=== PATIENT | female | born 1980 | race Caucasian/White ===

== ENCOUNTER → 2021-02-14 10:30 | Outpatient (CLI) | payer OTHER, SELFPAY ==
[2021-02-15 20:26] LABS: SARS-CoV-2 RNA PCR Negative
== END ==
PROVIDERS: PCP Internal Medicine; Visit Provider Nurse Practitioner
DX: R68.89 Other general symptoms and signs (principal); Z20.822 Contact with and (suspected) exposure to COVID-19
CPT/HCPCS: C9803; U0003; U0005

== ENCOUNTER → 2021-03-30 08:56 | Outpatient (CLI) | payer OTHER, SELFPAY ==
[2021-03-30 21:12] LABS: SARS-CoV-2 RNA PCR Positive
== END ==
PROVIDERS: PCP Internal Medicine; Visit Provider Nurse Practitioner
DX: U07.1 COVID-19 (principal)
CPT/HCPCS: C9803; U0003; U0005

== ENCOUNTER 2022-01-22 11:07 | Outpatient (CLI) | payer OTHER, SELFPAY ==
--- NOTE | 2022-01-22 11:16 | ECG_ITS ---
Measurements Intervals [place] Rate: 73 P: 63 MS: 152 QRS: 68 QRSD: 69 T: 47 QT: 343 QTc: 379 Interpretive Statements SINUS RHYTHM BORDERLINE ST ABNORMALITY- ANTERIOR LEADS BASELINE WANDER- I, II BORDERLINE ECG NO PREVIOUS ECG AVAILABLE FOR COMPARISON Electronically Signed On 01-22-2022 11:43:56 HOTEL SECURITY OFFICER by Lenin Mayen D.O.
== END 2022-01-22 11:08 | disposition home or self-care (01) ==
LOC: ANHCARD 11:09
PROVIDERS: PCP Internal Medicine; Visit Provider Obstetrics & Gynecology
DX: Z87.59 Personal history of other complications of pregnancy, childbirth and the puerperium (principal); R94.31 Abnormal electrocardiogram [ECG] [EKG]
CPT/HCPCS: 93005

== ENCOUNTER 2022-03-05 17:00 | Emergency (ER) | payer OTHER, SELFPAY ==
[2022-03-05 17:09] VITALS: BP 135/92; PULSE 103; RESP 16; TEMP 37.2; O2SAT 100
--- NOTE | 2022-03-05 17:16 | ED.FEMALEGU ---
HPI - Female Genitourinary General Chief complaint: Urogenital-Female Stated complaint: uti Time Seen by Provider: 03/05/22 17:33 Source: patient and RN notes reviewed Mode of arrival: ambulatory Limitations: no limitations History of Present Illness HPI Narrative: 51-year-old female in the 2nd trimester of presents with concern for urinary tract infection. Reports urine frequency, urgency, decreased urine amount. She denies fever, aches, chills, sweats, back pain, abdominal pain or cramping. MD elicited complaint: UTI Related Data Allergies Allergy/AdvReac Type Severity Reaction Status Date / Time cefaclor Allergy Unknown Hives Verified 03/05/22 17:25 Review of Systems Review of Systems: CONSTITUTIONAL: Denies malaise, chills, sweats, or fever. CARDIOVASCULAR: Denies chest pain, palpitations, or edema. RESPIRATORY: Denies cough or dyspnea. GASTROINTESTINAL: Denies abdominal pain, nausea, vomiting, diarrhea GENITOURINARY: Reports frequency, urgency, decreased urine amount. Denies urgency, suprapubic pressure. Denies flank pain or hematuria. SKIN: Denies rash or itching. MUSCULOSKELETAL: Denies back pain or myalgia. All systems reviewed & are unremarkable except as noted in HPI and below PMFSH Past Medical History Medical History Essential hypertension Generalized headaches Family History Family History Other Depression Heart disease History of cancer Hypertension Social History Social History Smoking status: Never smoker Alcohol intake: current Drinks per week: 3 Alcohol use details: wine Substance use: never Comments At time of signature, agree with nursing past medical, surgical, social and family history. There is no relevant family history pertinent to the presenting complaint Exam Narrative: GENERAL: Well-appearing, well-nourished, and in no acute distress. HEAD: Normocephalic. EYES: PERRLA, conjunctivae clear. NECK: Supple. No lymphadenopathy CHEST: Clear to auscultation. No respiratory distress. HEART: Regular rate and rhythm. ABDOMEN: Soft, nontender upon palpation, nondistended, normal active bowel sounds, no palpable or pulsatile masses, no guarding. No CVA tenderness SKIN: Warm, dry, no rash. NEURO: Alert and oriented x3. PSYCH: Normal mood and affect Course Course Emergency Course: Patient is aware of diagnosis, understands and agrees to treatment plan. Anticipatory guidance given. Patient agrees to follow-up as directed and is aware of reasons to seek care at the emergency department. Portions of this record may have been created with voice recognition software Level of Care: Express Care Visit Vital Signs Vital signs: Vital Signs Temperature 98.9 F 03/05/22 17:09 Pulse Rate 103 H 03/05/22 17:09 Respiratory Rate 16 03/05/22 17:09 Blood Pressure 135/92 H 03/05/22 17:09 Pulse Oximetry 100 03/05/22 17:09 Temperature 98.9 F 03/05/22 17:09 Pulse Rate 103 H 03/05/22 17:09 Respiratory Rate 16 03/05/22 17:09 Blood Pressure 135/92 H 03/05/22 17:09 Pulse Oximetry 100 03/05/22 17:09 Reviewed. MDM - Female Genitourinary MDM Narrative Medical decision making narrative: Exam findings and UA show no acute concerns or changes; patient is non-toxic appearing and is in no distress. Patient is appropriate for outpatient treatment and follow-up. Differential Diagnosis Differential diagnosis: Likely urinary tract infection and cystitis Critical Care Time Critical Care Time Critical Care Time: No Discharge Plan Discharge Clinical Impression: Symptoms of urinary tract infection Patient Disposition: Home, Self-Care Condition: Stable Instructions: Antibiotic Form, Urinary Tract Infection in (ED) Additional Instructions: We will send a urine cu
== END 2022-03-05 17:43 | disposition home or self-care (01) ==
PROVIDERS: Emergency Provider Nurse Practitioner; PCP Internal Medicine
DX: O99.891 Other specified diseases and conditions complicating pregnancy (principal); Z3A.00 Weeks of gestation of pregnancy not specified; R35.0 Frequency of micturition; R39.15 Urgency of urination; O16.2 Unspecified maternal hypertension, second trimester
CPT/HCPCS: 81003; 87086; 99213; G0463

== ENCOUNTER 2022-03-08 13:59 | Emergency (ER) | payer OTHER, SELFPAY ==
[2022-03-08 13:59] VITALS: BP 150/90; PULSE 110; RESP 16; TEMP 36.4; O2SAT 100
--- NOTE | 2022-03-08 16:22 | PC.NURSE ---
Pt attempted to void, unable to pass any urine. Pt had 668mL on Bladder scan., Liz Capellan notified
[2022-03-08 16:42] LABS: Add Urine Microscopic? YES; Appearance Urine Clear (Clear); Bilirubin Urine Negative (Negative); Blood Urine Negative (Negative); Color Urine Yellow (Yellow); Glucose Urine UA Trace mg/dL (Negative); Ketones Urine Trace mg/dL (Negative); Leukocyte Esterase Ur 2+ LEU/UL (Negative); Nitrate Urine Positive (Negative); Protein Urine Trace mg/dL (Negative); pH Urine 5.5 (5.0-9.0)
[2022-03-08 16:57] LABS: Bacteria Urine 4+ /hpf; Mucus Urine Rare /lpf; Squamous Epithelial Cell Urine Many /hpf (Few)
--- NOTE | 2022-03-08 17:33 | ED.FEMALEGU ---
HPI - Female Genitourinary General Chief complaint: Urogenital-Female <NORBERTO Selby Last Filed: 03/08/22 19:40> Stated complaint: urinary frequency <NORBERTO Selby Last Filed: 03/08/22 19:40> Time Seen by Provider: 03/08/22 15:55 <NORBERTO Selby Last Filed: 03/08/22 19:40> Source: patient <NOBRERTO Selby Last Filed: 03/08/22 19:40> Mode of arrival: ambulatory <NORBERTO Selby Last Filed: 03/08/22 19:40> Limitations: no limitations <NORBERTO Selby Last Filed: 03/08/22 19:40> History of Present Illness HPI Narrative: Patient is a 41 y/o female who presents to the ED with c/o urinary retention. Patient reports having issues with urination over the last 3 to 4 days. She reports having urinary frequency and urgency, but being unable to void. She is typically only able to void a small amount and does not feel like she is fully emptying her bladder. She reports some discomfort associated with urination, but denies significant abdominal pain, back pain, hematuria, nausea, vomiting, fevers, vaginal bleeding. Patient is G1, P0 and currently 18 weeks gestation[address] She sees Dr[address] Chavira and was referred here today by the office for further evaluation. Patient was seen in urgent care on Saturday at which point her urinalysis resulted negative and urine culture was also negative. <NORBERTO Selby Last Filed: 03/08/22 19:40> Related Data Allergies/Adverse reactions: Allergies Allergy/AdvReac Type Severity Reaction Status Date / Time cefaclor Allergy Unknown Hives Verified 03/05/22 17:25 <NORBERTO Selby Last Filed: 03/08/22 19:40> Review of Systems Review of Systems: CONSTITUTIONAL: Denies fever, chills, or sweats. EYES: Denies visual changes. ENT: Denies rhinorrhea, congestion, sore throat. CARDIOVASCULAR: Denies chest pain. RESPIRATORY: Denies dyspnea. GASTROINTESTINAL: Denies abdominal pain, nausea, vomiting. GENITOURINARY: Reports urinary frequency, urinary urgency, dysuria, urinary retention. Denies hematuria. SKIN: Denies rash or itching. MUSCULOSKELETAL: Denies back pain, joint pain, or myalgia. NEUROLOGIC: Denies headache, numbness, or weakness. <Janeth Fang PA-C - Last Filed: 03/08/22 19:40> All systems reviewed & are unremarkable except as noted in HPI and below <Janeth Fang PA-C - Last Filed: 03/08/22 19:40> [facility] Past Medical History Medical History: Medical History (Updated 03/09/22 @ 00:00 by Delroy Tenorio) Essential hypertension Generalized headaches <Janeth Fang PA-C - Last Filed: 03/08/22 19:40> Surgical History Surgical History: Surgical History (Updated 03/08/22 @ 17:33 by Janeth Fang PA-C) No pertinent past surgical history <Janeth Fang PA-C - Last Filed: 03/08/22 19:40> Family History Family History: Family History Other Depression Heart disease History of cancer Hypertension <Janeth Fang PA-C - Last Filed: 03/08/22 19:40> Social History Social History: Social History Smoking status: Never smoker Alcohol intake: current Drinks per week: 3 Alcohol use details: wine Substance use: never <Janeth Fang PA-C - Last Filed: 03/08/22 19:40> Exam Narrative: GENERAL: Well appearing, obese, non-toxic, in no acute distress. HEAD: Normocephalic, atraumatic. NECK: Supple. No adenopathy, no masses. RESPIRATORY: Airway patent, respirations nonlabored. Clear to auscultation bilaterally, no rales, rhonchi, wheezing. CARDIOVASCULAR: Borderline tachycardic with regular rhythm without murmurs, rubs, or gallops. Peripheral pulses 2+ and equal bilaterally. ABDOMINAL: Soft, no significant tenderness throughout abdomen, uterus gravid, nondiste
[2022-03-08 17:53] LABS: Basophils Percent Auto 0.4 % (0.2-1.2); Eosinophils Absolute Auto 0.3 K/mm3 (0-0.3); Eosinophils Percent Auto 2.5 % (0-4.4); Hematocrit 35.4 % (37.0-47.0); Hemoglobin 11.9 g/dL (12.0-15.0); Immature Granulocyte Absolute 0.05 K/mm3 (0.00-0.031); Immature Granulocyte Percent A 0.5 % (0-0.5); Lymphocytes Absolute Auto 1.63 K/mm3 (0.9-3.2); Lymphocytes Percent Auto 15.8 % (18.3-44.2); Mean Corpuscular HGB Conc 33.6 g/dl (32-36); Mean Corpuscular Hemoglobin 29.8 pg (26-34); Mean Corpuscular Volume 88.5 fl (80-100); Mean Platelet Volume 9.1 fl (7.4-10.4); Monocytes Absolute Auto 0.5 K/mm3 (0.1-0.6); Monocytes Percent Auto 5.1 % (2.6-8.5); Neutrophils Absolute Auto 7.8 K/mm3 (1.3-6.7); Neutrophils Percent Auto 75.7 % (45.5-73.1); Platelet Count Result 285 k/mm3 (150-375); Red Cell Distribution Width 13.2 % (11.5-14.5); White Blood Count 10.3 K/mm3 (4.5-10.0)
[2022-03-08 18:06] LABS: Alanine Aminotransferase 23 U/L (6-35); Albumin Level 3.9 g/dL (3.5-5.1); Alkaline Phosphatase 81 U/L (38-126); Anion Gap 6 mmol/L (8-16); Aspartate Amino Transferase 23 U/L (14-36); Bilirubin,Total 0.3 mg/dL (0.2-1.3); Blood Urea Nitrogen 10 mg/dL (7-17); Calcium 9.3 mg/dL (8.4-10.2); Carbon Dioxide 24 mmol/L (22-30); Chloride 102 mmol/L (98-107); Estimated CRCL calculation 136 ml/min; Estimated Glomerular Filt Rate > 60; Glucose 89 mg/dL (65-110); Sodium 132 mmol/L (137-145)
[2022-03-08] MEDS: SODIUM CHLORIDE 0.9% IV 1,000 ML 999 ML IV CONT (18:35)
[2022-03-08 19:10] VITALS: BP 137/78; PULSE 102; RESP 18; O2SAT 98
[2022-03-08] MEDS: FLUCONAZOLE 150 MG TABLET PO (19:49)
[2022-03-08] MEDS: NITROFURANTOIN MONOHYD MACROCR 100 MG CAP PO (19:49)
== END 2022-03-08 20:15 | disposition home or self-care (01) ==
PROVIDERS: Emergency Medicine; Physician Assistant; Emergency Provider Emergency Medicine; PCP Internal Medicine
DX: O23.42 Unspecified infection of urinary tract in pregnancy, second trimester (principal); R33.9 Retention of urine, unspecified; O10.912 Unspecified pre-existing hypertension complicating pregnancy, second trimester; Z3A.18 18 weeks gestation of pregnancy
CPT/HCPCS: 36415; 51702; 80053; 81001; 81025; 85025; 87086; 99283; A9270; J7030

== ENCOUNTER 2022-03-22 14:30 | Observation (INO) | payer OTHER, SELFPAY ==
[2022-03-22] VITALS (124 sets, daily range): BP systolic 57–134; BP diastolic 25–89; PULSE 75–125; RESP 12–18; TEMP 35.8–36.8; O2SAT 97–100; BMI 37.2
[2022-03-22 10:53] LABS: Platelet Count Result 242 k/mm3 (150-375)
[2022-03-22] MEDS: LACTATED RINGERS 1,000 ML 999 ML IV CONT (11:01)
--- NOTE | 2022-03-22 11:52 | WPDANESEPPF ---
Anes - Initial Pre Proc Eval Date/Time: 03/22/22 11:52 Surgeon: Greg Chavira MD Pre Op Diagnosis: pessary placement Patient Data Age: 41 Gender: F Height: Weight: Last Vital Signs Temp 36.8 C 03/22/22 11:18 Pulse 91 03/22/22 11:18 Resp 18 03/22/22 11:18 BP 134/71 03/22/22 11:18 Pulse Ox 99 03/22/22 11:26 Allergies Allergy/AdvReac Type Severity Reaction Status Date / Time cefaclor Allergy Unknown Hives Verified 03/21/22 11:54 Home Medications Medication Instructions Recorded Confirmed Type [id number] carb,gluc 20 mg 1 ea PO DAILY #90 ea 12/26/21 03/15/22 Rx iron-FA 1 mg-B6 25 mg/25 mg tablets (Citranatal B-Calm (Fe Gluc)) Laboratory Tests 03/22/22 10:45 Plt Count 242 k/mm3 k/mm3 (150-375) MPV 9.0 fl fl (7.4-10.4) Patient hx anesthesia problems: none Family hx anesthesia problems: none Results Review: All pre-operative results and documents have been reviewed as part of the pre-operative evaluation. [facility] Past Medical History Medical History Essential hypertension Generalized headaches Surgical History Surgical History No pertinent past surgical history Family History Family History Other Depression Heart disease History of cancer Hypertension Social History Social History Smoking status: Never smoker Alcohol intake: current Drinks per week: 3 Alcohol use details: wine Substance use: never Anes - Eval Final PreProcedure Day of Procedure 03/22/22 11:52 Patient weight: obese Heart: regular rate and rhythm Lungs: clear to auscultation Airway: Mallampati scale class II Neurological: alert and oriented Last oral intake: >/= 8 hours ASA classification: II Emergent: no Anesthetic plan: proceed Anesthesia type and monitoring: regional epidural and standard monitoring Results Review: All pre-operative results and documents have been reviewed as part of the pre-operative evaluation. Informed Consent: The patient's anesthetic plan and its attendant risks and benefits were discussed with the patient/family/POA. Questions were solicited and answers provided to the satisfaction of the patient/family/POA.
--- NOTE | 2022-03-22 12:20 | PC.NURSE ---
Dr. Chavira at bedside and again explained procedure to pt and . Consent signed.
--- NOTE | 2022-03-22 12:23 | PC.NURSE ---
Pt placed in leg stirrups.
--- NOTE | 2022-03-22 12:25 | PC.NURSE ---
Straight cathed by Dr. Chavira- 25 ml light yellow clear urine obtained.
[2022-03-22] MEDS: LACTATED RINGERS 1,000 ML 125 ML IV CONT ×2 (12:32→13:40)
--- NOTE | 2022-03-22 12:34 | PC.NURSE ---
Procedure completed. FHT's [address] Chavira.
--- NOTE | 2022-03-22 12:38 | PC.NURSE ---
Pt out of stirrups and pillow placed behind pt to provide left tilt.
--- NOTE | 2022-03-22 12:42 | PC.NURSE ---
Phenylephrine given by William Brice CRNA for drop in BP.
--- NOTE | 2022-03-22 12:44 | PC.NURSE ---
FHT's 130 per doppler.
--- NOTE | 2022-03-22 12:46 | PM.IMHP ---
H&P: HPI History of Present Illness Date/Time: 03/22/22 12:46 Chief Complaint: Incarcerated uterus Narrative: Patient at 20 weeks presented to [facility] after being seen at [facility] for survey ultrasound and urine retention. She was initially seen in ED on 03/08 with urine retention. She has catheter placed and seen by Urology and did self cath. She was subsequently seen in the office and pessary placed. She denies any significant pain. The pessary has helped the urine retention. The pessary was removed yesterday due to her having the survey and cervical length ultrasound today. She had ultrasound for survey and [facility] called recommend her to be admitted for reduction of incarcerated uterus. She has been informed of risk of not doing this and risk of procedure. She agrees to procedure. Review of Systems Review of Systems: All systems reviewed & are unremarkable except as noted in HPI and below Constitutional: Constitutional: Reports no additional constitutional complaints and Denies headache(s) Eyes: Eyes: Denies spots in vision ENT: Reports system reviewed and no additional complaints, except as documented and Denies headache(s) Cardiovascular: Cardiovascular: Denies chest pain and Denies dyspnea Respiratory: Respiratory: Denies dyspnea Gastrointestinal: Gastrointestinal: Reports no additional gastrointestinal complaints Genitourinary: Genitourinary: Reports amenorrhea Musculoskeletal: Musculoskeletal: Reports no additional musculoskeletal complaints Integumentary/Breasts: Skin/Breast: Denies breast mass and Denies rash Neurologic: Denies headache(s) Psychiatric: Psychiatric: Reports no additional psychiatric complaints PMFSH Past Medical History Medical History Essential hypertension Generalized headaches Surgical History Surgical History No pertinent past surgical history Family History Family History Other Depression Heart disease History of cancer Hypertension Social History Social History Smoking status: Never smoker Alcohol intake: current Drinks per week: 3 Alcohol use details: wine Substance use: never Meds Home Medications and Allergies Home Medications Medication Instructions Recorded Confirmed Type ff63-iled carb,gluc 20 mg 1 ea PO DAILY #90 ea 12/26/21 03/15/22 Rx iron-FA 1 mg-B6 25 mg/25 mg tablets (Citranatal B-Calm (Fe Gluc)) Allergies Allergy/AdvReac Type Severity Reaction Status Date / Time cefaclor Allergy Unknown Hives Verified 03/21/22 11:54 Vital Signs Vital Signs - 24 hr 03/22/22 11:18 03/22/22 11:07 03/22/22 11:16 Temperature 98.2 F Pulse Rate 91 Respiratory Rate 18 Blood Pressure 134/71 Pulse Oximetry 98 99 98 03/22/22 11:18 03/22/22 11:21 03/22/22 11:26 Temperature Pulse Rate 92 Respiratory Rate Blood Pressure 134/71 Pulse Oximetry 97 99 03/22/22 11:53 03/22/22 11:54 03/22/22 11:58 Temperature Pulse Rate 106 H Respiratory Rate Blood Pressure 110/89 Pulse Oximetry 100 100 03/22/22 12:01 03/22/22 12:03 03/22/22 12:04 Temperature Pulse Rate 90 94 Respiratory Rate Blood Pressure 109/54 L 111/52 L Pulse Oximetry 98 03/22/22 12:07 03/22/22 12:08 03/22/22 12:10 Temperature Pulse Rate 101 H 99 Respiratory Rate Blood Pressure 102/63 107/41 L Pulse Oximetry 100 03/22/22 12:13 03/22/22 12:16 03/22/22 12:17 Temperature Pulse Rate 106 H 80 103 H Respiratory Rate Blood Pressure 89/29 L 94/49 L 107/48 L Pulse Oximetry 99 03/22/22 12:18 03/22/22 12:19 03/22/22 12:22 Temperature Pulse Rate 97 94 Respiratory Rate Blood Pressure 100/41 L 101/44 L Pulse Oximetry 100 03/22/22 12:23
--- NOTE | 2022-03-22 12:48 | PC.NURSE ---
FHT's 128 per doppler
--- NOTE | 2022-03-22 12:53 | PC.NURSE ---
Turned all the way to left lateral.
--- NOTE | 2022-03-22 12:55 | PC.NURSE ---
FHT's 136 per doppler.
--- NOTE | 2022-03-22 12:56 | PC.NURSE ---
William Brice STUDIO PRODUCER informed of drop in BP's. Phenylephrine 100 mcg given IVP.
--- NOTE | 2022-03-22 12:56 | W.PM.PROC2 ---
Procedure Note - Detailed Date of Procedure 03/22/22 Pre-op Diagnosis gravid uterine incarceration Post-op Diagnosis Same Procedure Performed Reduction of incarcerated uterus, pessary placement Surgeon Greg Chavira MD Anesthesia Epidural Indications Incarcerated gravid uterus Findings Prior to reduction, on ultrasound, uterine fundus toward sacrum, heart tones 136 prior to, 144 after reduction. After reduction fundus palpated more anterior -2 umb. The fundus was palpated in cul de sac at sterile vaginal exam, and after lifted was not palpated in cul de sac, size 3 donut pessary placed in posterior vagina. Description of Procedure After informed consent was obtained an epidural was placed patient was placed in lithotomy position. A red Tristin catheter was used to drain the bladder which she id urinated prior to and drained approximately 80 cc of urine. While using the abdominal ultrasound, the vaginal exam was performed and the posterior palpated uterus was lifted until it was not felt in the cul-de-sac while looking with ultrasound the fundus appeared to be more cephalic presentation and not pointing towards spine. The cervix palpated inferior to the pubic bone. The donut pessary was placed posteriorly the ultrasound was visualized again in the uterus continued to look less directed towards the spine in more axial. The heart tones were 140s. Patient tolerated procedure well. She was taken out of lithotomy position. Discussed precautions to call for any gush of fluid bleeding persistent urine retention or pelvic pain. Estimated Blood Loss 0 Drains No Packing No Pathology None sent Complications No immediate complications Condition Stable Disposition Floor [facility] Billing Surgery - Charge Forward: Surgery Billing
--- NOTE | 2022-03-22 12:59 | PC.NURSE ---
FHT's 132 per doppler.
--- NOTE | 2022-03-22 13:02 | PC.NURSE ---
Phenylephrine 100 mcg given IVP and William Brice WIRELESS TELEGRAPHER informed. IV fluids continueto infuse rapidly.
--- NOTE | 2022-03-22 13:05 | PC.NURSE ---
Turned to right lateral side.
--- NOTE | 2022-03-22 13:06 | PC.NURSE ---
FHT's 120 per doppler.
--- NOTE | 2022-03-22 13:11 | PC.NURSE ---
FHT's 128 per doppler.
--- NOTE | 2022-03-22 13:17 | PC.NURSE ---
William Brice MODEL ENGINE MECHANIC in to see pt and states epidural catheter can come out now. Epidural catheter removed with tip intact. Additional Phenylephrine 100 mcg given IVP for hypotension. Pt feeling dizzy and light headed with some nausea.
--- NOTE | 2022-03-22 13:26 | PC.NURSE ---
Phenylephrine 100 mcg given IVP.
--- NOTE | 2022-03-22 13:37 | PC.NURSE ---
Dr. Chavira informed I have been dopplering FHT's due to maternal hypotension requiring Phenylephrine, but am unable to find FHT's at present. Requested MD flor use U/S.
--- NOTE | 2022-03-22 13:41 | PC.NURSE ---
Dr. Chavira at bedside. Bedside U/S confirms cardiac activity. FHT's [address] Chavira. MD will also come doppler again prior to pt's discharge.
--- NOTE | 2022-03-22 13:53 | PC.NURSE ---
Manohar Moore AD TERMINAL MAKEUP OPERATOR updated on pt's BP's, phenylephrine given, and IV fluids.
--- NOTE | 2022-03-22 14:17 | PC.NURSE ---
Light headedness and dizziness have resolved. Pt can feel touch at left upper thigh and right mid thigh. Pt able to wiggle right foot , but not left.
--- NOTE | 2022-03-22 15:00 | PC.NURSE ---
Pt feeling much better. Feels touch to both feet and able to move both legs. Pt assisted to semi-fowlers position to eat her lunch tray.
--- NOTE | 2022-03-22 15:45 | PC.NURSE ---
After having pt dangle on side of bed with no side effects; assisted into bathroom. Gait steady, but pt felt her right thigh was still a little heavy.
--- NOTE | 2022-03-22 16:43 | PC.NURSE ---
Pt up to bathroom with assist again; gait steady. Voided 500 ml pale yellow urine. FHT's 128 per doppler.
--- NOTE | 2022-03-22 16:56 | PC.NURSE ---
Dr. Chavira informed pt has been up to void twice- only 300 ml the first time and 500 ml last void. FHT's 128 per doppler. Discharge instructions received.
--- NOTE | 2022-04-13 10:55 | PM.OBTRLD ---
OB - Triage/Final Diagnosis Visit Information Comments/Additional reasons for admission: I have assessed the risk for this patient, Urvashi Tucker, and determined that she would benefit from observation care. 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
== END 2022-03-22 17:20 | disposition home or self-care (01) ==
LOC: ANHOBOP 17:54 → ANHLDR 17:54
PROVIDERS: Admitting Provider Obstetrics & Gynecology; PCP Internal Medicine; Visit Provider Obstetrics & Gynecology
DX: O34.512 Maternal care for incarceration of gravid uterus, second trimester (principal); N85.8 Other specified noninflammatory disorders of uterus; O99.891 Other specified diseases and conditions complicating pregnancy; R33.9 Retention of urine, unspecified; O10.012 Pre-existing essential hypertension complicating pregnancy, second trimester; O26.892 Other specified pregnancy related conditions, second trimester; F10.90 Alcohol use, unspecified, uncomplicated; Z3A.20 20 weeks gestation of pregnancy; Z79.899 Other long term (current) drug therapy; Z82.49 Family history of ischemic heart disease and other diseases of the circulatory system
CPT/HCPCS: 36415; 85049; 96360; 96361; 99199; G0378; G0379; J2795; J7120

== ENCOUNTER 2022-05-07 13:37 | Outpatient (RCR) | payer OTHER, SELFPAY ==
[2022-05-07 15:36] LABS: Basophils Percent Auto 0.3 % (0.2-1.2); Eosinophils Absolute Auto 0.3 K/mm3 (0-0.3); Eosinophils Percent Auto 2.6 % (0-4.4); Hematocrit 37.4 % (37.0-47.0); Hemoglobin 12.1 g/dL (12.0-15.0); Lymphocytes Absolute Auto 1.27 K/mm3 (0.9-3.2); Lymphocytes Percent Auto 12.1 % (18.3-44.2); Mean Corpuscular HGB Conc 32.4 g/dl (32-36); Mean Corpuscular Hemoglobin 29.4 pg (26-34); Mean Platelet Volume 8.7 fl (7.4-10.4); Monocytes Absolute Auto 0.6 K/mm3 (0.1-0.6); Monocytes Percent Auto 5.7 % (2.6-8.5); Neutrophils Absolute Auto 8.2 K/mm3 (1.3-6.7); Neutrophils Percent Auto 78.3 % (45.5-73.1); Platelet Count Result 278 k/mm3 (150-375); Red Blood Count 4.11 M/mm3 (4.2-5.4); Red Cell Distribution Width 14.1 % (11.5-14.5); White Blood Count 10.5 K/mm3 (4.5-10.0)
[2022-05-07 15:44] LABS: Glucose 1 Hour PP 50gm Dose 103 mg/dL
[2022-05-07] MEDS: RHO(D) IMMUNE GLOBULIN 300 MCG/2 ML SYRINGE IM (19:22)
== END 2022-08-05 23:59 | disposition home or self-care (01) ==
LOC: ANHLAB 13:37
PROVIDERS: PCP Internal Medicine; Visit Provider Obstetrics & Gynecology
DX: Z29.13 Encounter for prophylactic Rho(D) immune globulin (principal); O36.0190 Maternal care for anti-D [Rh] antibodies, unspecified trimester, not applicable or unspecified; Z3A.00 Weeks of gestation of pregnancy not specified
CPT/HCPCS: 36415; 82947; 85025; 85461; 86850; 86900; 86901; 90384; 96372; J2790

== ENCOUNTER 2022-06-21 15:07 | Outpatient (CLI) | payer OTHER, SELFPAY ==
[2022-06-21 15:45] VITALS: BP 156/78; PULSE 88
[2022-06-21 15:45] LABS: Basophils Absolute Auto 0.1 K/mm3 (0.0-0.1); Basophils Percent Auto 0.5 % (0.2-1.2); Eosinophils Absolute Auto 0.2 K/mm3 (0-0.3); Eosinophils Percent Auto 1.9 % (0-4.4); Hemoglobin 12.2 g/dL (12.0-15.0); Immature Granulocyte Absolute 0.12 K/mm3 (0.00-0.031); Immature Granulocyte Percent A 1.1 % (0-0.5); Lymphocytes Absolute Auto 1.54 K/mm3 (0.9-3.2); Lymphocytes Percent Auto 13.9 % (18.3-44.2); Mean Corpuscular Volume 88.1 fl (80-100); Mean Platelet Volume 9.2 fl (7.4-10.4); Monocytes Absolute Auto 0.6 K/mm3 (0.1-0.6); Neutrophils Absolute Auto 8.6 K/mm3 (1.3-6.7); Neutrophils Percent Auto 77.6 % (45.5-73.1); Platelet Count Result 246 k/mm3 (150-375); Red Cell Distribution Width 14.6 % (11.5-14.5); White Blood Count 11.1 K/mm3 (4.5-10.0)
[2022-06-21 15:52] LABS: Appearance Urine Cloudy (Clear); Bacteria Urine 4+ /hpf; Bilirubin Urine Negative (Negative); Blood Urine Negative (Negative); Color Urine Yellow (Yellow); Glucose Urine UA Negative (Negative); Ketones Urine Negative (Negative); Leukocyte Esterase Ur 2+ LEU/UL (NEGATIVE); Nitrate Urine Negative (Negative); Non Pathogenic Casts 0-2; Protein Urine Trace mg/dL (Negative); RBC Urine 0-2 /hpf (0-2); Specific Grav Ur 1.027 (1.001-1.035); Squamous Epithelial Cell Urine Moderate /hpf (Few); Urobilinogen Urine 0.2 mg/dL (<2.0); WBC Urine 21-50 /hpf (0-3); pH Urine 5.5 (5.0-9.0)
[2022-06-21 15:53] LABS: Add Urine Microscopic? YES
[2022-06-21 15:57] LABS: Alanine Aminotransferase 16 U/L (6-35); Albumin Level 3.1 g/dL (3.5-5.1); Alkaline Phosphatase 93 U/L (38-126); Anion Gap 5 mmol/L (8-16); Aspartate Amino Transferase 18 U/L (14-36); Bilirubin,Total 0.3 mg/dL (0.2-1.3); Blood Urea Nitrogen 13 mg/dL (7-17); Calcium 8.9 mg/dL (8.4-10.2); Carbon Dioxide 23 mmol/L (22-30); Chloride 105 mmol/L (98-107); Estimated Glomerular Filt Rate > 60; Glucose 106 mg/dL (65-110); Sodium 133 mmol/L (137-145); Uric Acid 4.4 mg/dL (2.5-7.5)
[2022-06-21 16:00] VITALS: BP 131/76; PULSE 84
[2022-06-21 16:15] VITALS: BP 138/80; PULSE 76
[2022-06-21 16:19] LABS: Creatinine Urine 151.5 mg/dL; Total Protein Urine Random 11 mg/dL; Ur Ttl Prot Creatinine Ratio 0.07 mg/mg (0-0.20)
[2022-06-21 16:30] VITALS: BP 156/81; PULSE 84
[2022-06-21 16:38] LABS: HIV 1/2 Ab P24 Ag Result Negative (Negative)
[2022-06-21 16:39] LABS: Rapid Plasma Reagin Non-Reactive (NonReactive)
--- NOTE | 2022-06-21 16:39 | PC.NURSE ---
Vital signs, labs and tracing reviewed with Dr. Chavira. Order received for pt to complete 24 hour urine.
[2022-06-21 16:44] VITALS: BP 131/76; PULSE 84
[2022-06-21 16:45] VITALS: BP 128/71; PULSE 80
== END 2022-06-21 16:58 | disposition home or self-care (01) ==
LOC: ANHOBOP 07-02 13:04
PROVIDERS: PCP Internal Medicine; Visit Provider Obstetrics & Gynecology
DX: O13.9 Gestational [pregnancy-induced] hypertension without significant proteinuria, unspecified trimester (principal); Z3A.00 Weeks of gestation of pregnancy not specified
CPT/HCPCS: 36415; 59025; 80053; 81001; 82570; 84156; 84550; 85025; 86592; 86703; 87086; 99199; G0432

== ENCOUNTER 2022-06-22 17:00 | Outpatient (NON) | payer OTHER, SELFPAY ==
[2022-06-22 17:00] VITALS: BMI 41.5
[2022-06-22 17:35] LABS: Collection Time Urine 24 HOURS
[2022-06-22 17:41] LABS: Patient Weight 265 Lbs; Total Volume 24 Hour Urine 2450 ml
[2022-06-22 17:52] LABS: Total Protein Urine 24 Hr 196 mg/24hr (28-141); Total Protein Urine Random 8 mg/dL
[2022-06-22 17:54] LABS: Creatinine Clearance Urine 171.3 ml/min (75-125); Creatinine Urine 66.1 mg/dL
== END 2022-06-22 17:01 | disposition home or self-care (01) ==
LOC: ANHOBOP 17:11
PROVIDERS: PCP Internal Medicine; Visit Provider Obstetrics & Gynecology
DX: Z34.90 Encounter for supervision of normal pregnancy, unspecified, unspecified trimester (principal)
CPT/HCPCS: 81050; 82575; 84156